=== PATIENT | male | born 1965 ===

== ENCOUNTER 2021-07-23 04:15 | Emergency (ER) | payer OTHER ==
[2021-07-23 04:34] VITALS: BP 195/100
[2021-07-23] MEDS ORDERED: SODIUM CHLORIDE 0.9% 1000 ML 1,000 ML IV ONE (06:45)
[2021-07-23 07:15] LABS: Hematocrit 39.7 % (35.5-45.6); Hemoglobin 13.7 gm/dl (11.8-15.2); Mean Corpuscular HGB Conc 35 % (32-34); Mean Corpuscular Volume 89 fl (84-94); Platelet Count 123 K/mm3 (140-440); Red Blood Count 4.48 M/mm3 (3.65-5.03); Red Cell Distribution Width 14.4 % (13.2-15.2)
--- NOTE | 2021-07-23 07:23 | Emergency Department Report ---
ED Abdominal Pain HPI - General Chief Complaint: Abdominal Pain Stated Complaint: UNABLE TO URINATE Time Seen by Provider: 07/23/21 06:45 Source: patient, EMS Mode of arrival: Ambulatory Limitations: Language Barrier - History of Present Illness Initial Comments: Patient presents with a 1 day history of lower abdominal pain and inability to urinate. He was at a cookout and noticed that he felt as though he had to void but could not. He states that he only voided small amounts. He started having increasing pain in the lower abdomen. There is no flank pain associated with this. There was no trauma. No fevers or chills. There is no actual dysuria. He states that he just could not empty his bladder. He never had symptoms like this before. There is no history of change in medication. He does have a urologist in [place], where he lives. He has a penile implant. He was not sure if the implant was causing problems. Is never had problems with the implant before. Severity scale (0 -10): 10 - Related Data Previous Rx's Medication Instructions Recorded Last Taken Type Tamsulosin [Flomax] 0.4 mg PO QDAY #30 cap 07/23/21 Unknown Rx Allergies Allergy/AdvReac Type Severity Reaction Status Date / Time No Known Allergies Allergy Unverified 07/23/21 04:24 ED Review of Systems ROS: Stated complaint: UNABLE TO URINATE Other details as noted in HPI Comment: All other systems reviewed and negative Constitutional: denies: fever Eyes: denies: vision change ENT: denies: throat pain Respiratory: denies: cough Cardiovascular: denies: chest pain Endocrine: denies: unexplained weight loss Gastrointestinal: as per HPI Genitourinary: as per HPI Musculoskeletal: denies: back pain Skin: denies: rash Neurological: denies: headache Hematological/Lymphatic: denies: easy bruising ED Past Medical Hx - Past Medical History Hx Diabetes: Yes Additional medical history: BPH - Surgical History Additional Surgical History: Penile implant - Family History Family history: no significant - Medications Home Medications: Home Medications Medication Instructions Recorded Confirmed Last Taken Type Tamsulosin [Flomax] 0.4 mg PO QDAY #30 cap 07/23/21 Unknown Rx ED Physical Exam - General Limitations: No Limitations, Language Barrier, Other (Pulse ox was noted and normal.) General appearance: alert, in no apparent distress (I have seen the patient after catheter was placed.) - Head Head exam: Present: atraumatic, normocephalic, normal inspection - Eye Eye exam: Present: normal appearance, EOMI - ENT ENT exam: Present: normal exam, normal orophraynx, normal external ear exam - Neck Neck exam: Present: normal inspection. Absent: meningismus - Respiratory Respiratory exam: Present: normal lung sounds bilaterally. Absent: respiratory distress - Cardiovascular Cardiovascular Exam: Present: regular rate, normal rhythm - GI/Abdominal GI/Abdominal exam: Present: soft, other (Mild obesity). Absent: distended, tenderness - Extremities Exam Extremities exam: Present: normal capillary refill. Absent: pedal edema - Back Exam Back exam: Absent: CVA tenderness (R), CVA tenderness (L) - Neurological Exam Neurological exam: Present: alert, oriented X3, normal gait. Absent: motor sensory deficit - Psychiatric Psychiatric exam: Present: normal affect, normal mood - Skin Skin exam: Present: warm, dry ED Course Vital Signs 07/23/21 04:33 Temperature 98.8 F Pulse Rate 91 H Respiratory 20 Rate Blood Pressure 195/100 [Left] O2 Sat by Pulse 98 Oximetry - Reevaluation(s) Reevaluation #1: 07/23/21 07:23 Tabares catheter have been placed. Labs have been reviewed. Reevaluation #2: 07/23/21 09:04 Labs are noted and the patient was discharged ED Medical Decision Making - Lab Data Result diagrams: 07/23/21 06:54 07/23/21 06:54 - Medical Decision Making Patient presents with acute urinary retention. He has a known enlarged prostate. At this time, he does not have evidence of pyelonephritis. There is no evidence of acute kidney injury. He has been informed of the risks and alternatives for going home with a catheter versus without. This is done with a n automatic lathe tender. Patient elects to go home without a catheter. He is moving here from [place]. He can be referred to urology here in primary care here. Patient has history of BPH, the fact that he is not on medications, we will start Flomax. Critical Care Time: No Critical care attestation.: If time is entered above; I have spent that time in minutes in the direct care of this critically ill patient, excluding procedure time. ED Disposition Clinical Impression: Urinary retention Disposition: HOME / SELF CARE / HOMELESS Is pt being admited?: No Condition: Stable Instructions: Acute Urinary Retention, Male Additional Instructions: Drink water. Return for problems. Follow-up with urology. Prescriptions: Tamsulosin [Flomax] 0.4 mg PO QDAY #30 cap Referrals: PRIMARY CARE, [Primary Care Provider] - 3-5 Days JAIDEN MAC MD [Staff Physician] - 3-5 Days REINALOD POLANCO MD [Staff Physician] - 3-5 Days Forms: Work/School Release Form(ED) Print Language: SWEDISH
[2021-07-23 07:33] LABS: BUN/Creatinine Ratio 18; Blood Urea Nitrogen 16 mg/dL (9-20); Calcium 9.7 mg/dL (8.4-10.2); Hemolysis Index 9
== END 2021-07-23 10:22 | disposition home or self-care (01) ==
LOC: ED 04:15
DX: R33.9 Retention of urine, unspecified (principal); E11.8 Type 2 diabetes mellitus with unspecified complications; N40.0 Benign prostatic hyperplasia without lower urinary tract symptoms; Z98.890 Other specified postprocedural states
CPT/HCPCS: 36415; 51701; 80048; 85027; 96360; 99284; J7030